=== PATIENT | male | born 1970 | race Caucasian/White ===

== ENCOUNTER 2016-09-11 19:32 | Emergency (ER) | payer MEDICAID, MEDICARE, OTHER ==
[~2016-09-11] VITALS: Ht 175.3 cm; Wt 85.0 kg
[~2016-09-11 19:32] MED LIST: AMOX875T PO; IPRAAER INH; NORT50CA PO; TEGR200T PO; VENL100T PO
[2016-09-11 19:33] VITALS: BP 148/107; PULSE 105; RESP 16; TEMP 98.4; O2SAT 99
[2016-09-11 21:45] VITALS: BP 173/109; PULSE 98; RESP 20; TEMP 98.4; O2SAT 98
[2016-09-11] MEDS ORDERED: PROCHLORPERAZINE INJ 10 MG/2 ML VIAL IV PUSH ONE (22:00)
[2016-09-11] MEDS ORDERED: SODIUM CHLOR 0.9% 1000 ML INJ 1,000 ML IV ONE (22:00)
[2016-09-11] MEDS ORDERED: diphenhydrAMINE HCL 50 MG/ML VIAL IV PUSH ONE (22:00)
[2016-09-11] MEDS ORDERED: KETOROLAC TROMETHAMINE 30 MG/ML (IVP) VIAL IV PUSH ONE (22:00)
--- NOTE | 2016-09-11 22:02 | PD ---
HPI Chief Complaint: Headache Time Seen by Provider: 21:46 Travel History International Travel<30 days: No Contact w/Intl Traveler<30days: No Traveled to known affect area: No History of Present Illness HPI This is a 46-year-old male who has a history of migraines who presents to the emergency department with 1 week of headache described as mostly in the back of his head and his neck, constant, moderate severity associated with multiple episodes of vomiting today. He used to take Imitrex for his headaches but doesn 't have any now. He took some Zofran today but that didn't help so he came to the emergency department. He says he doesn't usually throw up with his headaches. He says he just woke up with this headache and the severity has waxed and waned all week. PFSH Past Medical History Hx Anticoagulant Therapy: Yes Arthritis: Yes Asthma: Yes Blood Disorders: Yes (PE) Depression: Yes Heart Rhythm Problems: No Cancer: No Cardiovascular Problems: Yes High Cholesterol: No Congestive Heart Failure: No COPD: Yes Diabetes: No Diminished Hearing: No Endocrine: No Gastrointestinal Disorders: Yes GERD: Yes Genitourinary: No Headaches: Yes Hepatitis: No Hiatal Hernia: No Hypertension: Yes Medical other: Yes (ARTHRITIS; SEIZURES) Musculoskeletal: Yes Neurologic: Yes Psychiatric: Yes Respiratory: Yes (PE, CPOD) Immunizations Current: No Migraines: Yes Seizures: Yes Sleep Apnea: Yes (WEARS AT CPAP AT TIMES) Thyroid Disease: No Past Surgical History Neurologic Surgery: Yes (BACK SURGERY) Pacemaker: No Other Surgery: Yes (R. HAND, BACK SURGERY ) Social History Alcohol Use: No Tobacco Use: No Substance Use: No Allergies-Medications (Allergen,Severity, Reaction): Coded Allergies: Keppra (Unverified Allergy, Severe, SUCICIDE THOUGHTS, 09/11/16) Lamictal (Unverified Allergy, Severe, RASH, 09/11/16) Lyrica (Unverified Allergy, Severe, RASH, 09/11/16) Morphine (Unverified Allergy, Severe, SEVERE HEADACHE, 09/11/16) Topamax (Unverified Allergy, Severe, LOSE WT QUICKLY ; AWFUL TASTE IN MOUTH, 09/11/16) Reported Meds & Prescriptions Reported Meds & Active Scripts Active Reported Tegretol (Carbamazepine) 200 Mg Tab 300 Mg PO HS Combivent Respimat Inh (Ipratropium-Albuterol Inh) 20-100 [facility]/Act Aero 1 Puff INH QID Effexor (Venlafaxine HCl) 100 Mg Tab 200 Mg PO Q12H Nortriptyline (Nortriptyline HCl) 50 Mg Cap 100 Mg PO HS Review of Systems Except as stated in HPI: all other systems reviewed are Neg Physical Exam Narrative GENERAL:Well appearing, no acute distress SKIN: Focused skin assessment warm and dry. HEAD: Atraumatic. Normocephalic. EYES: Pupils equal and round. No injection or drainage. ENT: Moist mucous membranes NECK: Trachea midline. CARDIOVASCULAR: Regular rate and rhythm. No murmur appreciated. RESPIRATORY: Clear to auscultation. Breath sounds equal bilaterally. GASTROINTESTINAL: Abdomen soft, non-tender, nondistended. MUSCULOSKELETAL: No obvious deformities. NEUROLOGICAL: Awake and alert. No obvious cranial nerve deficits. No dysarthria or aphasia. No upper or lower extremity drift. No upper extremity ataxia. Visual covarrubias intact. PSYCHIATRIC: Appropriate mood and affect; insight and judgment normal. Data Data Last Documented VS Vital Signs Date Time Temp Pulse Resp B/P Pulse Ox O2 Delivery O2 Flow Rate FiO2 09/11/16 21:45 98.4 98 20 173/[address] Brain W/O Iv Contrast(Rout) (09/11/16 ) Prochlorperazine Inj (Compazine Inj) (09/11/16 22:00) Diphenhydramine Inj (Benadryl Inj) (09/11/16 22:00) Ketorolac Inj (Toradol Inj) (09/11/16 22:00) Sodium Chlor 0.9% 1000 Ml Inj (Ns 1000 M (09/11/16 22:00) MDM Medical Decision Making Medical Screen Exam Complete: Yes Emergency Medical Condition: Yes Interpretation(s) Afebrile, tachycardic, hypertensive Ct head: no acute process Differential Diagnosis Intracranial hemorrhage, mass, migraine Narrative Course This is a 46-year-old male who has a history of migraines who presents to the emergency department with 1 week of headache in 1 day of vomiting. He has a normal neurologic exam. I did obtain a CT because he says isn't red vomiting with this headache and the description of his symptoms concern me. I'm not concerned for subarachnoid hemorrhage as his headache is gradual in onset. He was given Compazine, Benadryl and Toradol. He feels much better and wants to go home. I think he can be discharged on anti-inflammatory. Diagnosis Primary Impression: Migraine headache Qualified Code: G43.009 - Migraine without aura and without status migrainosus , not intractable Patient Instructions: General Instructions Additional Instructions: If you develop severe worsening headache, persistent vomiting, numbness, weakness, difficulty walking or difficulty talking return to the emergency department immediately. Sometimes in the emergency department we did not identify the cause of headaches. If you continued to have headaches it is very important that you followup with your primary care physician as you may need further testing with an MRI. Med/Other Pt SpecificInfo: Prescription(s) given Scripts Naproxen 500 Mg [id number] Mg PO BID PRN (PAIN SCALE 4 TO 10) #20 TAB Prov:Floridalma Martell MD 09/12/16 Disposition: 01 DISCHARGE HOME Condition: Stable Floridalma Martell MD Sep 11, 2016 22:02
--- NOTE | 2016-09-12 00:03 | RADRPT ---
EXAM DATE/TIME: 09/11/2016 23:52 [facility] COMPARISON: CT BRAIN W/O CONTRAST, December 09, 2014, 21:09. INDICATIONS : Cephalgia. RADIATION DOSE: 39.05 CTDIvol (mGy) MEDICAL HISTORY : Seizures. Cardiovascular disease Hypertension.Pulmonary embolism. SURGICAL HISTORY : None. ENCOUNTER: Initial ACUITY: 1 week PAIN SCALE: 7/10 LOCATION: cranial TECHNIQUE: Multiple contiguous axial images were obtained of the head. Using automated exposure control and adj ustment of the mA and/or kV according to patient size, radiation dose was kept as low as reasonably a chievable to obtain optimal diagnostic quality images. DICOM format image data is available electro nically for review and comparison. FINDINGS: CEREBRUM: The ventricles are normal for age. No evidence of midline shift, mass lesion, hemorrhage or acute in farction. No extra-axial fluid collections are seen. POSTERIOR FOSSA: The cerebellum and brainstem are intact. The 4th ventricle is midline. The cerebellopontine angle i s unremarkable. EXTRACRANIAL: The visualized portion of the orbits is intact. SKULL: The calvaria is intact. No evidence of skull fracture. CONCLUSION: Normal examination for a patient of this age. No significant change has occurred. Mustapha Lim MD on September 12, 2016 at 0:01 Board Certified Radiologist. This report was verified electronically.
[2016-09-12] MEDS ORDERED: NAPR500T PO (00:17)
[2016-09-12 00:44] VITALS: BP 168/99
== END 2016-09-12 01:17 | disposition home or self-care (01) ==
LOC: NEPC 19:32
DX: G43.909 Migraine, unspecified, not intractable, without status migrainosus (principal); R11.10 Vomiting, unspecified; J44.9 Chronic obstructive pulmonary disease, unspecified; K21.9 Gastro-esophageal reflux disease without esophagitis; I10 Essential (primary) hypertension; R56.9 Unspecified convulsions; F32.9 Major depressive disorder, single episode, unspecified; M13.80 Other specified arthritis, unspecified site; Z79.899 Other long term (current) drug therapy
CPT/HCPCS: 70450; 96374; 96375; 99285; J0780; J1200; J1885; J7030